=== PATIENT | female | born 2000 | race Caucasian/White ===

== ENCOUNTER 2020-07-06 16:15 | Emergency (ER) | payer OTHER, SELFPAY ==
[2020-07-06 16:27] VITALS: BP 128/57; PULSE 99; RESP 18; TEMP 37.2; O2SAT 99; BMI 18.7
--- NOTE | 2020-07-06 16:46 | ED.GENADULT ---
HPI - General Adult General Chief complaint: Abdominal Pain Stated complaint: stomach pains, cant eat Time Seen by Provider: 07/06/20 16:27 Source: patient Mode of arrival: Ambulatory Limitations: no limitations History of Present Illness HPI narrative: Patient is a 19-year-old female that identifies as a male who is here for evaluation approximately 1 month of abdominal discomfort and diarrhea. Has also had had vomiting. Was seen at an outside facility within the past month and had lab reports done however the patient states there is no CT scan performed. He states that he was told he had gastritis and put on medications but has not had any improvement. He is here because his symptoms have not improved. Related Data Allergies Allergy/AdvReac Type Severity Reaction Status Date / Time amoxicillin Allergy Unknown Verified 07/06/20 17:41 Review of Systems Constitutional Constitutional: Denies headache(s) ENT Ears, Nose, Mouth, and Throat: Denies headache(s) Cardiovascular Cardiovascular: Reports system reviewed and no additional complaints, except as documented Respiratory Respiratory: Reports system reviewed and no additional complaints, except as documented Gastrointestinal Gastrointestinal: Reports abdominal pain, Reports diarrhea, Reports nausea and Reports vomiting Genitourinary Genitourinary: Denies dysuria Genitourinary: Denies dysuria Musculoskeletal Musculoskeletal: Reports system reviewed and no additional complaints, except as documented Integumentary/Breasts Skin/Breast: Reports system reviewed and no additional complaints, except as documented Neurologic Neurologic: Denies headache(s) Hematologic/Lymphatic On Anticoagulants: No Allergic/Immunologic Allergic/Immunologic: Reports system reviewed and no additional complaints, except as documented Patient History Medical History Pancreatitis Social History lives independently: Yes Exam Initial Vital Signs Initial Vital Signs: Vital Signs Temperature 98.9 F 07/06/20 16:27 Pulse Rate 99 H 07/06/20 16:27 Respiratory Rate 18 07/06/20 16:27 Blood Pressure 128/57 L 07/06/20 16:27 Pulse Oximetry 99 07/06/20 16:27 Const General: cooperative and comfortable Limitations: mental status not altered HENMT Head: normal to inspection and normocephalic Resp Effort & Inspection: normal respiratory effort Auscultation: clear to auscultation bilaterally Cardio Rate: regular rate Rhythm: regular rhythm GI Inspection: non-distended Palpation: soft and No tender Skin Lesions: no lesions Rashes: no rashes Neuro General: patient alert and patient awake Cognition: normal cognition Speech: speech normal Extrem General: normal to inspection and capillary refill normal Psych Appearance: grossly normal and well kempt Course Orders Ordered: ED Orders 07/06/20 17:05 Complete Blood Count AUTO DIFF Stat Comprehensive Metabolic Panel Stat Lipase Stat Sodium Chloride (Normal Saline 0.9%) 1,000 mls @ 150 mls/hr IV CONT [place] Last Infusion: 07/06/20 17:40 Dose: 1,000 mls/hr Documented by: Vital Signs Vital signs: Vital Signs - 8 hr 07/06/20 16:27 07/06/20 17:51 Temperature 98.9 F Pulse Rate 99 H 78 Respiratory Rate 18 24 Blood Pressure 128/57 L 118/64 Pulse Oximetry 99 99 Medical Decision Making Lab Data Lab results reviewed: Yes I reviewed the patient's lab results. Result diagrams: 07/06/20 17:05 07/06/20 17:05 Labs: Lab Results 07/06/20 07/06/20 Range/Units 17:05 17:05 WBC 7.9 (4.5-11.0) X10^3/uL RBC 4.85 (4.0-5.2) X10^6/uL Hgb 15.4 (12.0-16.0) g/dL Hct 45.6 (36-46) % MCV 94.1 (80-100) fL MCH 31.8 (26-34) PG MCHC 33.8 (30-36) % RDW 12.8 (11.6-14.8) % Plt Count 222 (150-400) X10^3/uL Neut % (Auto) 70.4 (50-75) % Lymph % (Auto) 21.3 L (25-40) % [place] % (Auto) 7.0 (3-14) % Eos % (Auto) 0.6 L (2-4) % Baso % (Auto) 0.7 (0-2) % Neut # (Auto) 5500 (9946-9637) /uL Lymph # (Auto) 1700 (4827-7222) /uL [place] # (Auto) 600 (0-900) /uL Eos # (Auto) 0 (0-450) /uL Baso # (Auto) 100 (0-100) /uL Sodium 138 (137-145) mmol/L Potassium 3.5 (3.4-5.1) mmol/L Chloride 104 (98-107) mmol/L Carbon Dioxide 24 (22-32) mmol/L BUN 16 (7-17) mg/dL Creatinine 0.80 (0.52-1.04) mg/dL Estimated GFR > 60.0 (>60) mL/min BUN/Creatinine Ratio 20.0 (6-22) Glucose 112 H (70-100) mg/dL Calcium 9.6 (8.4-10.2) mg/dL Total Bilirubin 2.0 H (0.2-1.3) mg/dL AST 20 (14-36) IU/L ALT 16 (<35) IU/L Alkaline Phosphatase 53 (38-126) U/L Total Protein 7.0 (6.3-8.2) g/dL Albumin 4.4 (3.5-5.0) g/dL Globulin 2.6 (1.7-4.1) g/dL Albumin/Globulin Ratio 1.7 (1.0-2.8) Lipase 197 (23-300) U/L Point of Care Testing Test Results Negative Urine Dip Bedside Urine Glucose Negative Bedside Urine Bilirubin - Negative Bedside Urine Ketone - Negative Urine Specific [place] 1.030 Bedside Urine Occult Blood - Negative Bedside Urine pH 6.0 Bedside Urine Protein - Negative Bedside Urine Urobilinogen - Negative Bedside Urine Nitrite - Negative Bedside Urine Leukocytes - Negative Esterase Point of care testing: Point of Care Testing Test Results Negative Urine Dip Bedside Urine Glucose Negative Bedside Urine Bilirubin - Negative Bedside Urine Ketone - Negative Urine Specific [place] 1.030 Bedside Urine Occult Blood - Negative Bedside Urine pH 6.0 Bedside Urine Protein - Negative Bedside Urine Urobilinogen - Negative Bedside Urine Nitrite - Negative Bedside Urine Leukocytes - Negative Esterase MDM Narrative Medical decision making narrative: Patient has had symptoms for the past month. Nothing new today but symptoms as have an improved. Labs are unremarkable. Is tolerating oral intake. I feel that we can hold on an a CT scans for now. No indication for antibiotics. I do feel that the patient would benefit from a referral to see Gastroenterology to discuss the indications for colonoscopy. He was given return precautions and follow-up instructions. He expressed understanding and agreement. Discharge Plan Departure Patient Disposition: Home Clinical Impression: Abdominal pain, Diarrhea Instructions: DI for Abdominal Pain-Adult Activity Restrictions/Additional Instructions: I do recommend you contact the [facility] at [phone]. You can make an appointment to discuss the indications for a colonoscopy. I also recommend that you take Imodium for any diarrhea. You can purchase this [id number]. Return to the emergency department for any new or worsening symptoms
[2020-07-06 17:13] LABS: Add Manual Diff / Slide Review NO; Basophils Absolute Auto 100 /uL (0-100); Basophils Percent Auto 0.7 % (0-2); Eosinophils Absolute Auto 0 /uL (0-450); Eosinophils Percent Auto 0.6 % (2-4); Hematocrit 45.6 % (36-46); Hemoglobin 15.4 g/dL (12.0-16.0); Lymphocytes Absolute Auto 1700 /uL (1100-4500); Lymphocytes Percent Auto 21.3 % (25-40); Mean Corpuscular HGB Conc 33.8 % (30-36); Mean Corpuscular Hemoglobin 31.8 PG (26-34); Mean Corpuscular Volume 94.1 fL (80-100); Monocytes Absolute Auto 600 /uL (0-900); Neutrophils Absolute Auto 5500 /uL (1500-7000); Neutrophils Percent Auto 70.4 % (50-75); Platelet Count 222 X10^3/uL (150-400); Red Blood Cell Count 4.85 X10^6/uL (4.0-5.2); Red Cell Distribution Width 12.8 % (11.6-14.8); White Blood Cell Count 7.9 X10^3/uL (4.5-11.0)
[2020-07-06 17:24] LABS: Alanine Aminotransferase 16 IU/L (<35); Albumin 4.4 g/dL (3.5-5.0); Albumin Globulin Ratio 1.7 (1.0-2.8); Alkaline Phosphatase 53 U/L (38-126); Aspartate Aminotransferase 20 IU/L (14-36); Blood Urea Nitrogen 16 mg/dL (7-17); Calcium 9.6 mg/dL (8.4-10.2); Carbon Dioxide 24 mmol/L (22-32); Chloride 104 mmol/L (98-107); Estimated Glomerular Filt Rate > 60.0 mL/min (>60); Globulin 2.6 g/dL (1.7-4.1); Glucose 112 mg/dL (70-100); HEMOLYSIS < 15 (0-50); Lipase 197 U/L (23-300); Potassium 3.5 mmol/L (3.4-5.1); Sodium 138 mmol/L (137-145)
[2020-07-06] MEDS: SODIUM CHLORIDE 0.9% 1,000 ML 150 ML IV (17:37)
[2020-07-06 17:51] VITALS: BP 118/64; PULSE 78; RESP 24; O2SAT 99
== END 2020-07-06 18:19 | disposition home or self-care (01) ==
PROVIDERS: Emergency Provider Emergency Medicine
DX: R10.9 Unspecified abdominal pain (principal); R19.7 Diarrhea, unspecified; R11.10 Vomiting, unspecified
CPT/HCPCS: 36415; 80053; 81003; 81025; 83690; 85025; 96360; 99284

== ENCOUNTER 2020-09-02 11:16 | Emergency (ER) | payer OTHER, SELFPAY ==
[2020-09-02 11:34] VITALS: BP 121/72; PULSE 73; RESP 14; TEMP 37.1; O2SAT 100
--- NOTE | 2020-09-02 14:28 | PC.NURSE ---
prominent ear wax noted in both ears. Reports muffled or decreased hearing in right ear. Have attempted OTC ear wax removal drops at home. Has history of similar episode.
--- NOTE | 2020-09-02 14:35 | ED.EAR ---
HPI - Ear Problem General Chief complaint: Ear Stated complaint: cant hear out of right ear Time Seen by Provider: 09/02/20 14:29 History of Present Illness HPI Narrative: Patient is a 19-year-old female to male transitioning patient who goes by Kim, presenting today with right ear pain and decreased ear hearing ongoing for last couple of days. He denies any fever or chills. Been using [id number] earwax medication but continues to have pain and decreased hearing. No drainage from the ear. Related Data Allergies Allergy/AdvReac Type Severity Reaction Status Date / Time amoxicillin Allergy Unknown Verified 09/02/20 11:36 Review of Systems Review of Systems Narrative: GENERAL: Denies chills,fever HEENT: See HPI RESPIRATORY: Denies dyspnea, cough, wheezing CARDIOVASCULAR: Denies chest pain, palpitations GASTROINTESTINAL: Denies nausea, vomiting MUSCULOSKELETAL: Denies extremity pain, injury SKIN: No rash, no laceration, no pruritus NEUROLOGIC: Denies weakness, dizziness, headache, numbness 8 point review of systems is negative except for those stated above and HPI Patient History Medical History Pancreatitis Social History lives independently: Yes Smoking Status: Current every day smoker Smoking Status: Current every day smoker alcohol intake frequency: 0-2 drinks per day Substance Use Type: does not use Exam Initial Vital Signs Initial Vital Signs: Vital Signs Temperature 98.8 F 09/02/20 11:34 Pulse Rate 73 09/02/20 11:34 Respiratory Rate 14 09/02/20 11:34 Blood Pressure 121/72 09/02/20 11:34 Pulse Oximetry 100 09/02/20 11:34 GENERAL: Well-appearing, well-nourished and in no acute distress. EAR: Right ear normal external exam cerumen impaction Left ear normal external tympanic CARDIOVASCULAR: peripheral pulses in tact, cap refill <2 sec RESPIRATORY: No respiratory distress, speaks in full sentences without difficulty EXTREMITIES: Normal range of motion, no clubbing or edema. Neurovascularly intact NEUROLOGICAL: Cranial nerves II through XII grossly intact. Normal gait and speech. SKIN: Warm, dry, no petechiae, no rashes or lesions. Course Orders Ordered: Discontinued Medications Hydrogen Peroxide/Benzyl Alcohol (Hydrogen Peroxide 473 Ml Solution) 15 ml TOP NOW ONE Stop: 09/02/20 14:35 Last Admin: 09/02/20 15:02 Dose: 15 ml Documented by: KSENIA Vital Signs Vital signs: Vital Signs - 8 hr 09/02/20 11:34 Temperature 98.8 F Pulse Rate 73 Respiratory Rate 14 Blood Pressure 121/72 Pulse Oximetry 100 Medical Decision Making MDM Narrative Medical decision making narrative: Nursing flushed both ears large amounts of wax were removed. Patient overall feels significantly better. Ears re-examined no infection seen. Discharge Plan Departure Patient Disposition: Home Clinical Impression: Impacted cerumen Qualifiers: Laterality: bilateral Qualified Code(s): H61.23 - Impacted cerumen, bilateral Instructions: Cerumen Impaction Activity Restrictions/Additional Instructions: *You have been diagnosed with bilateral impacted cerumen *What to do: Supple at that you feel better after having her ears flushed. It may be a good idea to use [id number] medication once a week to help keep ears clear *Continue to take medications as directed *Follow up with your primary care provider in 2-3 days *Return to ER if you should have a fever, increasing pain or any new, worsening or concerning symptoms
[2020-09-02] MEDS: HYDROGEN PEROXIDE 473 ML SOLUTION 15 ML TOP (15:02)
== END 2020-09-02 15:11 | disposition home or self-care (01) ==
PROVIDERS: Emergency Provider Emergency Medicine
DX: H61.23 Impacted cerumen, bilateral (principal)
CPT/HCPCS: 69209; 99283; 99284

== ENCOUNTER 2020-12-20 16:05 | Emergency (ER) | payer OTHER, SELFPAY ==
[2020-12-20] VITALS (9 sets, daily range): BP systolic 102–139; BP diastolic 53–82; PULSE 73–154; RESP 16–25; TEMP 36.1; O2SAT 94–99; BMI 20.1
--- NOTE | 2020-12-20 17:05 | ED.GENADULT ---
HPI - General Adult General Chief complaint: Abdominal Pain Stated complaint: STOMACH PAINS THROWING UP Time Seen by Provider: 12/20/20 16:45 Source: patient Mode of arrival: Ambulatory History of Present Illness HPI narrative: 20-year-old patient here for evaluation of lower abdominal discomfort for the past couple days. No urinary symptoms. Has had loose stools during this time. No blood in the stool. No recent travel. No recent antibiotic use. No vaginal bleeding. Started vomiting today. No fevers. Has not tried anything for the symptoms prior to arrival. States that the abdominal pain gets worse and then will have a bowel movement in the abdominal discomfort improves Related Data Allergies Allergy/AdvReac Type Severity Reaction Status Date / Time amoxicillin Allergy Unknown Verified 12/20/20 16:16 Review of Systems Constitutional Constitutional: Denies fever(s) Cardiovascular Cardiovascular: Reports system reviewed and no additional complaints, except as documented Respiratory Respiratory: Reports system reviewed and no additional complaints, except as documented Gastrointestinal Gastrointestinal: Reports as per HPI and Reports system reviewed and no additional complaints, except as documented Genitourinary Genitourinary: Reports system reviewed and no additional complaints, except as documented and Reports as per HPI Musculoskeletal Musculoskeletal: Reports system reviewed and no additional complaints, except as documented Integumentary/Breasts Skin/Breast: Reports system reviewed and no additional complaints, except as documented Hematologic/Lymphatic On Anticoagulants: No Patient History Medical History Pancreatitis Social History lives independently: Yes Smoking Status: Current every day smoker Smoking Status: Current every day smoker alcohol intake frequency: a few times a week Substance Use Type: marijuana Exam Initial Vital Signs Initial Vital Signs: Vital Signs Temperature 97 F L 12/20/20 16:14 Pulse Rate 154 H 12/20/20 16:14 Respiratory Rate 16 12/20/20 16:14 Blood Pressure 139/82 12/20/20 16:14 Pulse Oximetry 98 12/20/20 16:14 Const General: cooperative, healthy appearing, comfortable and well developed Limitations: mental status not altered HENMT Head: normal to inspection and normocephalic Neck Neck: normal visual inspection Chest Chest: normal inspection of the chest Resp Effort & Inspection: normal respiratory effort Cardio Rate: regular rate Rhythm: regular rhythm GI Inspection: normal to inspection and non-distended Palpation: soft, No firm, No guarding and No tender Back/Spine/Pelvis Back: No CVA tenderness Skin Lesions: no lesions Rashes: no rashes Neuro General: patient alert, patient awake, patient oriented x3 and does not move all extremities Extrem General: capillary refill normal Psych Appearance: grossly normal and well kempt Course Orders Ordered: ED Orders 12/20/20 16:17 EKG-12 Lead Stat 12/20/20 16:40 Complete Blood Count AUTO DIFF Stat Comprehensive Metabolic Panel Stat Lipase Stat 12/20/20 17:06 Complete Blood Count AUTO DIFF Stat Comprehensive Metabolic Panel Stat Lipase Stat Sodium Chloride (Normal Saline 0.9%) 1,000 mls @ 150 mls/hr IV CONT [place] Last Admin: 12/20/20 17:27 Dose: Not Given Documented by: CTRAnujHANDER Discontinued Medications Sodium Chloride (Normal Saline 0.9%) 1,000 mls @ 1,000 mls/hr IV BOLUS ONE Stop: 12/20/20 17:44 Last Admin: 12/20/20 17:26 Dose: 1,000 mls/hr Documented by: CTRAnujHANDER Lorazepam (Lorazepam 2 Mg/Ml Inj) 1 mg IV NOW ONE Stop: 12/20/20 17:07 Last Admin: 12/20/20 17:26 Dose: 1 mg Documented by: CTRAnujHANDER Ondansetron HCl (Ondansetron 4 Mg/2 Ml Inj) 4 mg IV NOW ONE Stop: 12/20/20 16:18 Last Admin: 12/20/20 17:26 Dose: 4 mg Documented by: CTRAnujHANDER Ondansetron HCl (Ondansetron 4 Mg Odt Prepack) 1 bottle MISC SEEINSTR ONE Stop: 12/20/20 19:43 Vital Signs Vital signs: Vital Signs - 8 hr 12/20/20 16:14 12/20/20 17:39 12/20/20 18:00 Temperature 97 F L Pulse Rate 154 H 89 73 Respiratory Rate 16 18 21 Blood Pressure 139/82 102/53 L 109/57 L Pulse Oximetry 98 94 95 12/20/20 18:30 12/20/20 19:00 12/20/20 19:25 Temperature Pulse Rate 83 102 H 95 H Respiratory Rate 16 25 H Blood Pressure 104/60 113/65 112/65 Pulse Oximetry 95 98 99 12/20/20 19:30 12/20/20 19:34 Temperature Pulse Rate 103 H 107 H Respiratory Rate 22 Blood Pressure 119/70 Pulse Oximetry 99 99 Medical Decision Making Lab Data Lab results reviewed: Yes I reviewed the patient's lab results. Result diagrams: 12/20/20 16:40 12/20/20 16:40 Labs: Lab Results 12/20/20 12/20/20 Range/Units 16:40 16:40 WBC 11.0 (4.5-11.0) X10^3/uL RBC 4.45 (4.0-5.2) X10^6/uL Hgb 14.1 (12.0-16.0) g/dL Hct 40.6 (36-46) % MCV 91.2 (80-100) fL MCH 31.6 (26-34) PG MCHC 34.7 (30-36) % RDW 12.1 (11.6-14.8) % Plt Count 266 (150-400) X10^3/uL Neut % (Auto) 86.1 H (50-75) % Lymph % (Auto) 9.3 L (25-40) % [place] % (Auto) 4.3 (3-14) % Eos % (Auto) 0.1 L (2-4) % Baso % (Auto) 0.2 (0-2) % Neut # (Auto) 9400 H (0555-2392) /uL Lymph # (Auto) 1000 L (7245-1637) /uL [place] # (Auto) 500 (0-900) /uL Eos # (Auto) 0 (0-450) /uL Baso # (Auto) 0 (0-100) /uL Sodium 140 (137-145) mmol/L Potassium 3.3 L (3.4-5.1) mmol/L Chloride 106 (98-107) mmol/L Carbon Dioxide 26 (22-32) mmol/L BUN 7 (7-17) mg/dL Creatinine 0.70 (0.52-1.04) mg/dL Estimated GFR > 60.0 (>60) mL/min BUN/Creatinine Ratio 10.0 (6-22) Glucose 130 H (70-100) mg/dL Calcium 10.1 (8.4-10.2) mg/dL Total Bilirubin 0.7 (0.2-1.3) mg/dL AST 23 (14-36) IU/L ALT 17 (<35) IU/L Alkaline Phosphatase 52 (38-126) U/L Total Protein 6.9 (6.3-8.2) g/dL Albumin 4.4 (3.5-5.0) g/dL Globulin 2.5 (1.7-4.1) g/dL Albumin/Globulin Ratio 1.8 (1.0-2.8) Lipase 159 (23-300) U/L Point of Care Testing Test Results Negative Urine Dip Bedside Urine Glucose Negative Bedside Urine Bilirubin - Negative Bedside Urine Ketone +/- 5 Urine Specific [place] 1.025 Bedside Urine Occult Blood - Negative Bedside Urine pH 7.0 Bedside Urine Protein - Negative Bedside Urine Urobilinogen 0.2 Bedside Urine Nitrite - Negative Bedside Urine Leukocytes - Negative Esterase Point of care testing: Point of Care Testing Test Results Negative Urine Dip Bedside Urine Glucose Negative Bedside Urine Bilirubin - Negative Bedside Urine Ketone +/- 5 Urine Specific [place] 1.025 Bedside Urine Occult Blood - Negative Bedside Urine pH 7.0 Bedside Urine Protein - Negative Bedside Urine Urobilinogen 0.2 Bedside Urine Nitrite - Negative Bedside Urine Leukocytes - Negative Esterase MDM Narrative Medical decision making narrative: Patient feels better after the Ativan and fluids and Zofran. His labs are unremarkable. He does have a benign abdominal exam. I feel that we should wait on any CT scan for now. Will send home with nausea medication. Patient was given return precautions and follow-up instructions. Expressed understanding and agreement. Discharge Plan Departure Patient Disposition: Home Clinical Impression: Abdominal pain, Nausea and vomiting Instructions: DI for Abdominal Pain-Adult, Nausea and Vomiting-Adult Activity Restrictions/Additional Instructions: Use the nausea medication as needed. I do recommend that you increase your fluid intake by drinking small amounts over longer periods of time. You can start advancing your diet as tolerated. Return to the emergency department for any new or worsening symptoms.
[2020-12-20 17:10] LABS: Alanine Aminotransferase 17 IU/L (<35); Albumin 4.4 g/dL (3.5-5.0); Albumin Globulin Ratio 1.8 (1.0-2.8); Alkaline Phosphatase 52 U/L (38-126); Aspartate Aminotransferase 23 IU/L (14-36); Bilirubin Total 0.7 mg/dL (0.2-1.3); Blood Urea Nitrogen 7 mg/dL (7-17); Calcium 10.1 mg/dL (8.4-10.2); Carbon Dioxide 26 mmol/L (22-32); Chloride 106 mmol/L (98-107); Estimated Glomerular Filt Rate > 60.0 mL/min (>60); Globulin 2.5 g/dL (1.7-4.1); Glucose 130 mg/dL (70-100); HEMOLYSIS < 15 (0-50); Lipase 159 U/L (23-300); Potassium 3.3 mmol/L (3.4-5.1); Sodium 140 mmol/L (137-145); Total Protein 6.9 g/dL (6.3-8.2)
[2020-12-20 17:14] LABS: Add Manual Diff / Slide Review NO; Basophils Absolute Auto 0 /uL (0-100); Basophils Percent Auto 0.2 % (0-2); Eosinophils Absolute Auto 0 /uL (0-450); Eosinophils Percent Auto 0.1 % (2-4); Hematocrit 40.6 % (36-46); Hemoglobin 14.1 g/dL (12.0-16.0); Lymphocytes Absolute Auto 1000 /uL (1100-4500); Lymphocytes Percent Auto 9.3 % (25-40); Mean Corpuscular HGB Conc 34.7 % (30-36); Mean Corpuscular Hemoglobin 31.6 PG (26-34); Mean Corpuscular Volume 91.2 fL (80-100); Monocytes Absolute Auto 500 /uL (0-900); Monocytes Percent Auto 4.3 % (3-14); Neutrophils Absolute Auto 9400 /uL (1500-7000); Neutrophils Percent Auto 86.1 % (50-75); Platelet Count 266 X10^3/uL (150-400); Red Blood Cell Count 4.45 X10^6/uL (4.0-5.2); Red Cell Distribution Width 12.1 % (11.6-14.8)
[2020-12-20] MEDS: LORazepam 2 MG/ML INJ 1 MG IV (17:26)
[2020-12-20] MEDS: ONDANSETRON 4 MG/2 ML INJ IV (17:26)
[2020-12-20] MEDS: SODIUM CHLORIDE 0.9% 1,000 ML 1000 ML IV (17:26)
--- NOTE | 2020-12-20 17:45 | PC.NURSE ---
Patient has hx of pancreatitis, states she no longer drinks alcohol.
[2020-12-20] MEDS: ONDANSETRON 4 MG ODT PREPACK 1 BOTTLE MISC (19:59)
== END 2020-12-20 20:05 | disposition home or self-care (01) ==
PROVIDERS: Emergency Provider Emergency Medicine
DX: R10.9 Unspecified abdominal pain (principal); R11.2 Nausea with vomiting, unspecified
CPT/HCPCS: 36415; 80053; 81003; 81025; 83690; 85025; 96361; 96374; 96375; 99284; J2060; J2405

== ENCOUNTER 2020-12-26 11:17 | Emergency (ER) | payer OTHER, SELFPAY ==
[2020-12-26 11:28] VITALS: BP 135/70; PULSE 105; RESP 15; TEMP 36.7; O2SAT 99; BMI 20.1
[2020-12-26 11:49] LABS: Add Manual Diff / Slide Review NO; Basophils Absolute Auto 0 /uL (0-100); Basophils Percent Auto 0.4 % (0-2); Eosinophils Absolute Auto 0 /uL (0-450); Eosinophils Percent Auto 0.4 % (2-4); Hematocrit 43.8 % (36-46); Hemoglobin 14.9 g/dL (12.0-16.0); Lymphocytes Absolute Auto 1500 /uL (1100-4500); Lymphocytes Percent Auto 18.3 % (25-40); Mean Corpuscular HGB Conc 33.9 % (30-36); Mean Corpuscular Hemoglobin 31.6 PG (26-34); Mean Corpuscular Volume 93.2 fL (80-100); Monocytes Absolute Auto 400 /uL (0-900); Monocytes Percent Auto 4.9 % (3-14); Neutrophils Absolute Auto 6100 /uL (1500-7000); Platelet Count 258 X10^3/uL (150-400); Red Cell Distribution Width 12.2 % (11.6-14.8); White Blood Cell Count 8.1 X10^3/uL (4.5-11.0)
[2020-12-26 11:57] LABS: Alanine Aminotransferase 17 IU/L (<35); Albumin 4.5 g/dL (3.5-5.0); Albumin Globulin Ratio 1.9 (1.0-2.8); Alkaline Phosphatase 50 U/L (38-126); Aspartate Aminotransferase 21 IU/L (14-36); BUN Creatinine Ratio 14.3 (6-22); Bilirubin Total 0.7 mg/dL (0.2-1.3); Blood Urea Nitrogen 10 mg/dL (7-17); Calcium 9.7 mg/dL (8.4-10.2); Carbon Dioxide 28 mmol/L (22-32); Chloride 101 mmol/L (98-107); Estimated Glomerular Filt Rate > 60.0 mL/min (>60); Globulin 2.4 g/dL (1.7-4.1); Glucose 130 mg/dL (70-100); HEMOLYSIS < 15 (0-50); Lipase 128 U/L (23-300); Potassium 3.8 mmol/L (3.4-5.1); Sodium 138 mmol/L (137-145); Total Protein 6.9 g/dL (6.3-8.2)
--- NOTE | 2020-12-26 12:14 | ED.ABDPAIN ---
HPI - Abdominal Pain <Walker Ramirez PA-C - Last Filed: 12/26/20 19:40> General Chief Complaint: Abdominal Pain Stated Complaint: Abd/right armpit pain, cannot pass stool Time Seen by Provider: 12/26/20 11:58 Source: patient Mode of arrival: Ambulatory Limitations: no limitations History of Present Illness HPI narrative: Patient is a 20-year-old presenting to the emergency department today for evaluation of abdominal pain that began approximately a week and half ago. Patient was seen in the emergency department on 12/20/2020 for an evaluation of similar symptoms and was discharged home with a prescription for Zofran. He states that since that time he has experienced similar right-sided abdominal pain that has not improved. Additionally, he states that he has had intermittent episodes of nonbloody non bilious vomiting, urinary urgency, nausea, diarrhea, and anxiety. He rates his pain a 4/10 in intensity and states that it is constant. Last bowel movement occurred today and was described as ?greasy?. No fever, cough, shortness of breath, chest pain, dysuria reported. No other concerns voiced at this time. Related Data Previous Rx's Medication Instructions Recorded ondansetron HCl 4 mg tablet 4 mg PO Q8H PRN #30 tab 12/26/20 (Zofran) Allergies Allergy/AdvReac Type Severity Reaction Status Date / Time amoxicillin Allergy Unknown Verified 12/26/20 11:34 Review of Systems <Walker Ramirez PA-C - Last Filed: 12/26/20 19:40> Constitutional Constitutional: Denies chills, Denies fever(s), Denies frequent falls, Denies lethargy and Denies weakness ENT Ears, Nose, Mouth, and Throat: Denies dizziness Cardiovascular Cardiovascular: Denies chest pain, Denies irregular heart rhythm, Denies lightheadedness, Denies palpitations, Denies dyspnea, Denies dyspnea on exertion and Denies orthopnea Respiratory Respiratory: Denies cough, Denies dyspnea, Denies dyspnea on exertion and Denies wheezing Gastrointestinal Gastrointestinal: Reports abdominal pain, Denies hematochezia, Reports change in bowel habits, Denies constipation, Reports diarrhea, Reports nausea, Reports vomiting and Denies hematemesis Genitourinary Genitourinary: Denies hematuria, Denies dysuria and Reports urinary urgency Musculoskeletal Musculoskeletal: Denies numbness Neurologic Neurologic: Denies behavioral changes, Denies confusion, Denies dizziness, Denies frequent falls, Denies numbness and Denies weakness Psychiatric Psychiatric: Reports anxiety, Denies behavioral changes and Denies confusion Endocrine Endocrine: Denies palpitations Allergic/Immunologic Allergic/Immunologic: Denies wheezing Patient History <Walker Ramirez PA-C - Last Filed: 12/26/20 19:40> Medical History Pancreatitis Social History lives independently: Yes Smoking Status: Current every day smoker Smoking Status: Current every day smoker alcohol intake frequency: a few times a week Substance Use Type: marijuana Exam <Walker Ramirez PA-C - Last Filed: 12/26/20 19:40> Narrative Exam Narrative: GENERAL: 20 year old patient appears stated age. Well-developed patient, in mild distress. HEAD: Atraumatic. Normocephalic. EYES: Pupils equal round and reactive. Extraocular motions intact. No scleral icterus. No injection or drainage. ENT: Nose without bleeding, purulent drainage. Throat without erythema, tonsillar hypertrophy or exudate. Airway patent. NECK: Trachea midline. Non tender CARDIOVASCULAR: Regular rate and rhythm without murmurs, gallops, or rubs. RESPIRATORY: Clear to auscultation. Breath sounds equal bilaterally. No wheezes, rales, or rhonchi. GASTROINTESTINAL: Abdomen soft, nondistended. No significant tenderness to palpation appreciated throughout the 4 quadrants of the abdomen. Negative McBurney's point. Negative Torres sign. EXTREMITIES: No edema or joint tenderness. BACK: Nontender without deformity or crepitance. No flank tenderness. NEURO: AOx3. SKIN: No rash or erythema of visible areas Initial Vital Signs Initial Vital Signs: Vital Signs Temperature 98.1 F 12/26/20 11:28 Pulse Rate 105 H 12/26/20 11:28 Respiratory Rate 15 12/26/20 11:28 Blood Pressure 135/70 12/26/20 11:28 Pulse Oximetry 99 12/26/20 11:28 <Ame Merritt DO - Last Filed: 12/28/20 18:54> Initial Vital Signs Initial Vital Signs: Vital Signs Temperature 98.1 F 12/26/20 11:28 Pulse Rate 105 H 12/26/20 11:28 Respiratory Rate 15 12/26/20 11:28 Blood Pressure 135/70 12/26/20 11:28 Pulse Oximetry 99 12/26/20 11:28 Course <Walker Ramirez PA-C - Last Filed: 12/26/20 19:40> Course Course Narrative: Patient is a 20-year-old presenting to the emergency department today for evaluation of abdominal pain that began approximately a week and half ago. Orders Ordered: Discontinued Medications Sodium Chloride (Normal Saline 0.9%) 1,000 mls @ 1,000 mls/hr IV BOLUS ONE Stop: 12/26/20 13:17 Last Infusion: 12/26/20 13:44 Dose: 0 mls/hr Documented by: Admin: 12/26/20 12:50 Dose: 1,000 mls/hr Documented by: LUIS Ondansetron HCl (Ondansetron 4 Mg/2 Ml Inj) 4 mg IV NOW ONE Stop: 12/26/20 12:19 Last Admin: 12/26/20 12:50 Dose: 4 mg Documented by: LUIS Reevaluation(s) Reevaluation #1: Patient states that he is feeling better after IV fluids and IV Zofran. Inform the patient that overall his lab work looks reassuring. Still awaiting results of CT scan. Time: 13:10 Vital Signs Vital signs: Vital Signs - 8 hr 12/26/20 13:46 Pulse Rate 95 H Respiratory Rate 12 Blood Pressure 118/76 Pulse Oximetry 98 <Ame Merritt DO - Last Filed: 12/28/20 18:54> Orders Ordered: Discontinued Medications Sodium Chloride (Normal Saline 0.9%) 1,000 mls @ 1,000 mls/hr IV BOLUS ONE Stop: 12/26/20 13:17 Last Infusion: 12/26/20 13:44 Dose: 0 mls/hr Documented by: Admin: 12/26/20 12:50 Dose: 1,000 mls/hr Documented by: LUIS Ondansetron HCl (Ondansetron 4 Mg/2 Ml Inj) 4 mg IV NOW ONE Stop: 12/26/20 12:19 Last Admin: 12/26/20 12:50 Dose: 4 mg Documented by: LUIS Vital Signs Vital signs: Vital Signs - 8 hr 12/26/20 13:46 Pulse Rate 95 H Respiratory Rate 12 Blood Pressure 118/76 Pulse Oximetry 98 MDM - Abdominal Pain <Walker Ramirez PA-C - Last Filed: 12/26/20 19:40> Lab Data Lab results narrative: I have personally reviewed all lab results. Result diagrams: 12/26/20 11:30 12/26/20 11:30 Labs: Lab Results 12/26/20 12/26/20 Range/Units 11:30 11:30 WBC 8.1 (4.5-11.0) X10^3/uL RBC 4.70 (4.0-5.2) X10^6/uL Hgb 14.9 (12.0-16.0) g/dL Hct 43.8 (36-46) % MCV 93.2 (80-100) fL MCH 31.6 (26-34) PG MCHC 33.9 (30-36) % RDW 12.2 (11.6-14.8) % Plt Count 258 (150-400) X10^3/uL Neut % (Auto) 76.0 H (50-75) % Lymph % (Auto) 18.3 L (25-40) % [place] % (Auto) 4.9 (3-14) % Eos % (Auto) 0.4 L (2-4) % Baso % (Auto) 0.4 (0-2) % Neut # (Auto) 6100 (4961-1113) /uL Lymph # (Auto) 1500 (5139-8257) /uL [place] # (Auto) 400 (0-900) /uL Eos # (Auto) 0 (0-450) /uL Baso # (Auto) 0 (0-100) /uL Sodium 138 (137-145) mmol/L Potassium 3.8 (3.4-5.1) mmol/L Chloride 101 (98-107) mmol/L Carbon Dioxide 28 (22-32) mmol/L BUN 10 (7-17) mg/dL Creatinine 0.70 (0.52-1.04) mg/dL Estimated GFR > 60.0 (>60) mL/min BUN/Creatinine Ratio 14.3 (6-22) Glucose 130 H (70-100) mg/dL Calcium 9.7 (8.4-10.2) mg/dL Total Bilirubin 0.7 (0.2-1.3) mg/dL AST 21 (14-36) IU/L ALT 17 (<35) IU/L Alkaline Phosphatase 50 (38-126) U/L Total Protein 6.9 (6.3-8.2) g/dL Albumin 4.5 (3.5-5.0) g/dL Globulin 2.4 (1.7-4.1) g/dL Albumin/Globulin Ratio 1.9 (1.0-2.8) Lipase 128 (23-300) U/L Point of care testing: Point of Care Testing Test Results Negative Urine Dip Bedside Urine Glucose Negative Bedside Urine Bilirubin - Negative Bedside Urine Ketone - Negative Urine Specific [place] 1.005 Bedside Urine Occult Blood - Negative Bedside Urine pH 7.5 Bedside Urine Protein - Negative Bedside Urine Urobilinogen - Negative Bedside Urine Nitrite - Negative Bedside Urine Leukocytes - Negative Esterase Imaging Data CT scan - abdomen/pelvis: Radiologist's Impression: PROCEDURE:? CT ABDOMEN PELVIS W CON ? INDICATIONS:? Abdominal pain ? TECHNIQUE:? After the administration of intravenous contrast, axial sections acquired from the lung bases to the pubic symphysis.? Coronal and sagittal reformats were performed.? For radiation dose reduction, the following was used:? automated exposure control, adjustment of mA and/or kV according to patient size.? ? COMPARISON:? None. ? FINDINGS:? Image quality:? Excellent.? ? Lung bases:? Unremarkable. Heart:? No significant findings. ? ABDOMEN: Liver:? Unremarkable.? ? Gallbladder:? Within normal limits. Biliary ducts:? Unremarkable.? ? Pancreas:? Unremarkable.? ? Spleen:? Unremarkable.? ? Adrenal Glands:? Unremarkable.? ? Kidneys and Ureters:? Unremarkable.? ? ? Stomach and Bowel:? .? No gastric or small bowel wall thickening.? Appendix is visualized in right lower quadrant and is within normal limits.? There is suggestion of mild diffuse colonic wall thickening with mild pericolonic fat stranding concerning for low-grade infectious inflammatory colitis.? No abscess collection. Peritoneum:? Small amount of free fluid is noted in lower pelvis.? No abdominal free fluid.? No peritoneal free air. ? ? Ventral Wall: ? No hernias.? Abdominal Nodes:? No retroperitoneal or mesenteric adenopathy by size criteria.? Vessels:? Aorta and inferior vena cava are normal in size.? ? PELVIS: Pelvic Organs:? Uterus and left adnexa show no gross abnormality .? Possible complex cyst or hemorrhagic cyst in right ovary is seen measures 1.7 x 1.9 cm in size series 2, image 72. Bladder:? Unremarkable.? ? Pelvic Nodes: No enlarged lymph nodes.? Miscellaneous: No hernias are seen. ? ? ? Bones:? Unremarkable ? ? IMPRESSION:? 1. Questionable mild colonic wall thickening suggestive of low-grade colitis.? No evidence of acute appendicitis.? No abscess collection.? No abdominal free fluid.? No peritoneal free air. 2.? Possible hemorrhagic cyst versus complex cyst in right ovary.? Small amount of free fluid in lower pelvis which may represent physiologic fluid for patient's age.? No gross abnormality is seen in uterus and left ovary.? ? ? Dictated by: Armand Painting M.D. on 12/26/2020 at 12:49 ? ? Approved by: Armand Painting M.D. on 12/26/2020 at 13:02 ? MDM Narrative Medical decision making narrative: Patient is a 20-year-old presenting to the emergency department today for evaluation of abdominal pain that began approximately a week and half ago. To consider pancreatitis versus cholecystitis versus appendicitis versus gastroenteritis. CT of abdomen and pelvis with IV contrast ordered and showed mild colonic wall thickening and right-sided ovarian cyst measuring 1.7 x 1.9 cm. Lipase, CBC, CMP ordered and were reassuring. Discussed with the patient's results of the CT scan, and at this time he feels comfortable being discharged home with strict return precautions discussed prior to discharge. <Ame Merritt, DO - Last Filed: 12/28/20 18:54> Lab Data Labs: Lab Results 12/26/20 12/26/20 Range/Units 11:30 11:30 WBC 8.1 (4.5-11.0) X10^3/uL RBC 4.70 (4.0-5.2) X10^6/uL Hgb 14.9 (12.0-16.0) g/dL Hct 43.8 (36-46) % MCV 93.2 (80-100) fL MCH 31.6 (26-34) PG MCHC 33.9 (30-36) % RDW 12.2 (11.6-14.8) % Plt Count 258 (150-400) X10^3/uL Neut % (Auto) 76.0 H (50-75) % Lymph % (Auto) 18.3 L (25-40) % [place] % (Auto) 4.9 (3-14) % Eos % (Auto) 0.4 L (2-4) % Baso % (Auto) 0.4 (0-2) % Neut # (Auto) 6100 (9933-2393) /uL Lymph # (Auto) 1500 (1829-7503) /uL [place] # (Auto) 400 (0-900) /uL Eos # (Auto) 0 (0-450) /uL Baso # (Auto) 0 (0-100) /uL Sodium 138 (137-145) mmol/L Potassium 3.8 (3.4-5.1) mmol/L Chloride 101 (98-107) mmol/L Carbon Dioxide 28 (22-32) mmol/L BUN 10 (7-17) mg/dL Creatinine 0.70 (0.52-1.04) mg/dL Estimated GFR > 60.0 (>60) mL/min BUN/Creatinine Ratio 14.3 (6-22) Glucose 130 H (70-100) mg/dL Calcium 9.7 (8.4-10.2) mg/dL Total Bilirubin 0.7 (0.2-1.3) mg/dL AST 21 (14-36) IU/L ALT 17 (<35) IU/L Alkaline Phosphatase 50 (38-126) U/L Total Protein 6.9 (6.3-8.2) g/dL Albumin 4.5 (3.5-5.0) g/dL Globulin 2.4 (1.7-4.1) g/dL Albumin/Globulin Ratio 1.9 (1.0-2.8) Lipase 128 (23-300) U/L Point of care testing: Point of Care Testing Test Results Negative Urine Dip Bedside Urine Glucose Negative Bedside Urine Bilirubin - Negative Bedside Urine Ketone - Negative Urine Specific [place] 1.005 Bedside Urine Occult Blood - Negative Bedside Urine pH 7.5 Bedside Urine Protein - Negative Bedside Urine Urobilinogen - Negative Bedside Urine Nitrite - Negative Bedside Urine Leukocytes - Negative Esterase Discharge Plan Departure Patient Disposition: Home Clinical Impression: Colitis Ovarian cyst Qualifiers: Laterality: right Qualified Code(s): N83.201 - Unspecified ovarian cyst, right side Instructions: DI for Ovarian Cyst Activity Restrictions/Additional Instructions: *You have been diagnosed with right ovarian cyst, mild colitis *What to do: *Please continue to take your regular medications as directed. [X] New medication prescriptions sent to your pharmacy: [facility] - Zofran [ ] New medication written as a paper prescription [ ] No new medications given *Please follow up with your primary care provider in 2-3 days, call for an appointment. Let them know you were seen in the Emergency Department and that we ask that you be seen in follow up. We will electronically transmit a record of today's note if your PCP is in our system *If you do not have a primary care provider please contact the [facility] Resource line at [phone]. They will ask some questions about your medical history and help get you set up with a doctor in the community. *Return to Emergency Department if you should have any new, worsening or concerning symptoms, such as fever greater than 101 F, shaking chills, worsening abdominal pain, persistent vomiting or other bothersome symptoms. Prescriptions: New ondansetron HCl [Zofran] 4 mg tablet 4 mg PO Q8H PRN (Reason: nausea and vomiting) Qty: 30 RF: 0 <Ame Merritt DO - Last Filed: 12/28/20 18:54> Cosign ED Attending Nasirature Attestation: I was immediately available in the department for consultation. Documentation has been reviewed. I agree with assessment and plan.
--- NOTE | 2020-12-26 12:22 | DI.CT.S_ITS ---
PROCEDURE: CT ABDOMEN PELVIS W CON INDICATIONS: Abdominal pain TECHNIQUE: After the administration of intravenous contrast, axial sections acquired from the lung bases to the pubic symphysis. Coronal and sagittal reformats were performed. For radiation dose reduction, the following was used: automated exposure control, adjustment of mA and/or kV according to patient size. COMPARISON: None. FINDINGS: Image quality: Excellent. Lung bases: Unremarkable. Heart: No significant findings. ABDOMEN: Liver: Unremarkable. Gallbladder: Within normal limits. Biliary ducts: Unremarkable. Pancreas: Unremarkable. Spleen: Unremarkable. Adrenal Glands: Unremarkable. Kidneys and Ureters: Unremarkable. Stomach and Bowel: . No gastric or small bowel wall thickening. Appendix is visualized in right lower quadrant and is within normal limits. There is suggestion of mild diffuse colonic wall thickening with mild pericolonic fat stranding concerning for low-grade infectious inflammatory colitis. No abscess collection. Peritoneum: Small amount of free fluid is noted in lower pelvis. No abdominal free fluid. No peritoneal free air. Ventral Wall: No hernias. Abdominal Nodes: No retroperitoneal or mesenteric adenopathy by size criteria. Vessels: Aorta and inferior vena cava are normal in size. PELVIS: Pelvic Organs: Uterus and left adnexa show no gross abnormality . Possible complex cyst or hemorrhagic cyst in right ovary is seen measures 1.7 x 1.9 cm in size series 2, image 72. Bladder: Unremarkable. Pelvic Nodes: No enlarged lymph nodes. Miscellaneous: No hernias are seen. Bones: Unremarkable IMPRESSION: 1. Questionable mild colonic wall thickening suggestive of low-grade colitis. No evidence of acute appendicitis. No abscess collection. No abdominal free fluid. No peritoneal free air. 2. Possible hemorrhagic cyst versus complex cyst in right ovary. Small amount of free fluid in lower pelvis which may represent physiologic fluid for patient's age. No gross abnormality is seen in uterus and left ovary. Dictated by: Armand Painting M.D. on 12/26/2020 at 12:49 Approved by: Armand Painting M.D. on 12/26/2020 at 13:02
[2020-12-26] MEDS: SODIUM CHLORIDE 0.9% 1,000 ML 1000 ML IV (12:50)
[2020-12-26] MEDS: ONDANSETRON 4 MG/2 ML INJ IV (12:50)
[2020-12-26 13:46] VITALS: BP 118/76; PULSE 95; RESP 12; O2SAT 98
== END 2020-12-26 13:47 | disposition home or self-care (01) ==
PROVIDERS: Emergency Medicine; Emergency Provider Physician Assistant
DX: N83.201 Unspecified ovarian cyst, right side (principal); K52.9 Noninfective gastroenteritis and colitis, unspecified
CPT/HCPCS: 36415; 74177; 80053; 81003; 81025; 83690; 85025; 93005; 93010; 96361; 96374; 99284; J2405

== ENCOUNTER 2021-01-01 08:50 | Emergency (ER) | payer OTHER, SELFPAY ==
[2021-01-01 09:00] VITALS: BP 148/82; PULSE 140; RESP 15; TEMP 36.8; O2SAT 99; BMI 19.3
--- NOTE | 2021-01-01 09:12 | ED_ITS ---
HPI - General Adult General Chief complaint: Abdominal Pain Stated complaint: stomach problems, colitis, ovarian cyst, worsening Time Seen by Provider: 01/01/21 08:57 Source: patient Mode of arrival: Ambulatory Limitations: no limitations History of Present Illness HPI narrative: 20-year-old here for evaluation of nausea, dry heaving, abdominal pain. Has been seen in this emergency department 2 times in the past for similar issues. I saw the patient initially. There was improvement with fluids and had unremarkable labs. Patient has been seeing subsequently and had a CT scan of the abdomen. There is a right-sided ovarian cyst. Again improved with medications. Has a scheduled follow-up appointment with primary doctor in approximately 1 month. This is an initial appointment. Returns to emergency department today for continued abdominal pain, nausea, now having symptoms consistent with reflux disease. No fevers. No change in bowel habits. No urinary symptoms. Related Data Previous Rx's Medication Instructions Recorded ondansetron HCl 4 mg tablet 4 mg PO Q8H PRN #30 tab 12/26/20 (Zofran) Allergies Allergy/AdvReac Type Severity Reaction Status Date / Time amoxicillin Allergy Unknown Verified 01/01/21 09:04 Review of Systems Cardiovascular Cardiovascular: Reports as per HPI and Reports system reviewed and no additional complaints, except as documented Respiratory Respiratory: Reports as per HPI and Reports system reviewed and no additional complaints, except as documented Gastrointestinal Gastrointestinal: Reports as per HPI and Reports system reviewed and no additional complaints, except as documented Genitourinary Genitourinary: Reports system reviewed and no additional complaints, except as documented Musculoskeletal Musculoskeletal: Reports system reviewed and no additional complaints, except as documented Integumentary/Breasts Skin/Breast: Reports system reviewed and no additional complaints, except as documented Hematologic/Lymphatic On Anticoagulants: No Patient History Medical History Pancreatitis Social History lives independently: Yes Smoking Status: Current every day smoker Smoking Status: Current every day smoker alcohol intake frequency: holidays/special occasions only Substance Use Type: marijuana Exam Initial Vital Signs Initial Vital Signs: Vital Signs Temperature 98.3 F 01/01/21 09:00 Pulse Rate 140 H 01/01/21 09:00 Respiratory Rate 15 01/01/21 09:00 Blood Pressure 148/82 H 01/01/21 09:00 Pulse Oximetry 99 01/01/21 09:00 Const General: cooperative, comfortable and well developed Limitations: mental status not altered HENMT Head: normal to inspection and normocephalic Resp Effort & Inspection: normal respiratory effort Cardio Rate: regular rate GI Inspection: non-distended Palpation: soft and tender (Right adnexa) Skin Lesions: no lesions Rashes: no rashes Neuro General: patient alert, patient awake and patient oriented x3 Extrem General: normal to inspection and capillary refill normal Psych Appearance: grossly normal and well kempt Course Orders Ordered: ED Orders 01/01/21 09:15 US pelvic complete Stat Vital Signs Vital signs: Vital Signs - 8 hr 01/01/21 09:00 Temperature 98.3 F Pulse Rate 140 H Respiratory Rate 15 Blood Pressure 148/82 H Pulse Oximetry 99 Medical Decision Making Imaging Data US - SEWING SUPERVISOR: Radiologist's Impression: [address] [address] Ultrasound Report Signed Patient: Rakan Dsouza MR#: [id number] : 2000 Acct:[id number] Age/Sex: 20 / F Date of Service: 01/01/21 Loc: ED Accession Number: [id number] ?? Procedure: US pelvic complete Ordering Provider: Edison Avila D.O. PROCEDURE:? US PELVIC COMPLETE ? INDICATIONS:? RIGHT ADNEXA PAIN ? TECHNIQUE:? Real-time scanning was performed of the pelvic organs, with image documentation.? Additional endovaginal scanning was necessary due to incomplete visualization of the adnexal and endometrial structures by transabdominal scanning.? ? COMPARISON:? [facility], CT, CT ABDOMEN PELVIS W CON, 12/26/2020, 12:40. ? FINDINGS:? ?? Uterus:? Uterus is normal in size at 7.2 x 4.4 x 3.7 cm.? The endometrium measures 10 mm in combined thickness.? ? Ovaries:? The right ovary measures 4 x 3.2 x 2.6 cm. The left ovary measures 2.5 x 1.6 x 1.4 cm.? This within the right ovary, there is a complex thick-walled irregular cyst with peripheral vascularity that measures 2 x 1.6 x 1.8 cm. The ovaries otherwise have a normal sonographic appearance.? No adnexal masses are seen. ? Other: ? A mild amount of free pelvic fluid is seen, which is considered to be within physiologic limits. ? ? ? IMPRESSION:? Likely hemorrhagic cyst again seen involving the right ovary.? If it would be clinically appropriate, a followup pelvic ultrasound could be considered in 6 weeks to assure resolution/ improvement.? Dictated by: Roel Brambila M.D. on 01/01/2021 at 9:28 ? ? Approved by: Roel Brambila M.D. on 01/01/2021 at 9:30? MDM Narrative Medical decision making narrative: Ultrasound today does show a right-sided ovarian cyst which is very similar in size to will was seen on the CT scan. This could be causing the right-sided abdominal discomfort. I did discuss this with the patient. Has had a CT scan and also labs in the past. Do not feel that we need to repeat those today. There has an appointment already scheduled for primary provider. Will have patient keep this appointment. No further workup needed today. Given return precautions. Expressed understanding and agreement. Discharge Plan Departure Patient Disposition: Home Clinical Impression: Abdominal pain, Ovarian cyst Instructions: DI for Abdominal Pain-Adult Activity Restrictions/Additional Instructions: I recommend that you continue to take all of your medications as directed and keep all of your scheduled medical appointments. Please return to the emergency department for any new or worsening symptoms Prescriptions: No Action ondansetron HCl [Zofran] 4 mg tablet 4 mg PO Q8H PRN (Reason: nausea and vomiting) Qty: 30 0RF
--- NOTE | 2021-01-01 09:15 | DI.US.S_ITS ---
PROCEDURE: US PELVIC COMPLETE INDICATIONS: RIGHT ADNEXA PAIN TECHNIQUE: Real-time scanning was performed of the pelvic organs, with image documentation. Additional endovaginal scanning was necessary due to incomplete visualization of the adnexal and endometrial structures by transabdominal scanning. COMPARISON: [facility], CT, CT ABDOMEN PELVIS W CON, 12/26/2020, 12:40. FINDINGS: Uterus: Uterus is normal in size at 7.2 x 4.4 x 3.7 cm. The endometrium measures 10 mm in combined thickness. Ovaries: The right ovary measures 4 x 3.2 x 2.6 cm. The left ovary measures 2.5 x 1.6 x 1.4 cm. This within the right ovary, there is a complex thick-walled irregular cyst with peripheral vascularity that measures 2 x 1.6 x 1.8 cm. The ovaries otherwise have a normal sonographic appearance. No adnexal masses are seen. Other: A mild amount of free pelvic fluid is seen, which is considered to be within physiologic limits. IMPRESSION: Likely hemorrhagic cyst again seen involving the right ovary. If it would be clinically appropriate, a followup pelvic ultrasound could be considered in 6 weeks to assure resolution/ improvement. Dictated by: Roel Brambila M.D. on 01/01/2021 at 9:28 Approved by: Roel Brambila M.D. on 01/01/2021 at 9:30
[2021-01-01 10:50] VITALS: BP 121/68; PULSE 100; O2SAT 99
== END 2021-01-01 10:51 | disposition home or self-care (01) ==
PROVIDERS: Emergency Provider Emergency Medicine
DX: R10.9 Unspecified abdominal pain (principal); N83.201 Unspecified ovarian cyst, right side
CPT/HCPCS: 76830; 76856; 99281; 99283